=== PATIENT | male | born 1995 | race African-American/Black ===

== ENCOUNTER 2020-06-12 04:00 | Emergency (ER) | payer MEDICARE, MEDICAID ==
[~2020-06-12] VITALS: Ht 177.8 cm; Wt 63.6 kg
[~2020-06-12 04:00] MED LIST: OLAN15TA18 PO
[2020-06-12] MEDS ORDERED: NAPR-1025 PO (04:09)
[2020-06-12 04:46] VITALS: BP 123/74
[2020-06-12] MEDS ORDERED: PENICILLIN V POTASSIUM 500 MG TABLET PO ONE (05:00)
[2020-06-12] MEDS ORDERED: TraMADol HCL 50 MG TABLET PO ONE (05:00)
== END 2020-06-12 05:08 | disposition home or self-care (01) ==
LOC: EMS 04:02
DX: K08.89 Other specified disorders of teeth and supporting structures (principal); F17.200 Nicotine dependence, unspecified, uncomplicated; F20.9 Schizophrenia, unspecified; Z91.018 Allergy to other foods

== ENCOUNTER 2020-06-15 00:07 | Emergency (ER) | payer MEDICARE, MEDICAID ==
[~2020-06-15] VITALS: Ht 177.8 cm; Wt 68.2 kg
[~2020-06-15 00:07] MED LIST changes: +NAPR-1025 PO
[2020-06-15] MEDS ORDERED: BUPIVACAINE HCL/PF 0.25% 10 ML VIAL INJ ONE (01:30)
[2020-06-15] MEDS ORDERED: LIDOCAINE 1% 10 ML VIAL INJ ONE (01:30)
[2020-06-15] MEDS ORDERED: BUPIVACAINE HCL 0.25% 50 ML VIAL INJ ONE (01:30)
[2020-06-15] MEDS ORDERED: TraMADol HCL 50 MG TABLET PO ONE (02:00)
[2020-06-15 02:10] VITALS: BP 132/84
== END 2020-06-15 02:22 | disposition home or self-care (01) ==
LOC: EMS 00:08
DX: K08.89 Other specified disorders of teeth and supporting structures (principal); F12.90 Cannabis use, unspecified, uncomplicated; F20.9 Schizophrenia, unspecified; Z79.899 Other long term (current) drug therapy
CPT/HCPCS: 64400; 99284; J3490 ×2

== ENCOUNTER 2020-07-02 01:54 | Emergency (ER) | payer MEDICARE, MEDICAID ==
[~2020-07-02] VITALS: Ht 177.8 cm; Wt 72.7 kg
[2020-07-02] MEDS ORDERED: TraMADol HCL 50 MG TABLET PO ONE (02:45)
[2020-07-02 02:56] VITALS: BP 130/78
== END 2020-07-02 03:02 | disposition home or self-care (01) ==
LOC: EMS 02:01
DX: K08.89 Other specified disorders of teeth and supporting structures (principal); F20.9 Schizophrenia, unspecified; F12.90 Cannabis use, unspecified, uncomplicated; Z91.018 Allergy to other foods